=== PATIENT | male | born 1955 | race Caucasian/White ===

== ENCOUNTER 2017-07-10 15:08 | Emergency (ER) | payer MEDICARE, MEDICAID ==
[~2017-07-10] VITALS: Ht 175.3 cm; Wt 76.0 kg
[~2017-07-10 15:08] MED LIST: HYDR30CR79 TP; METH-360 PO
[2017-07-10 15:18] VITALS: BP 136/82
== END 2017-07-10 15:41 | disposition left against medical advice (07) ==
LOC: ER 15:09
DX: J02.9 Acute pharyngitis, unspecified (principal); Z53.21 Procedure and treatment not carried out due to patient leaving prior to being seen by health care provider

== ENCOUNTER 2018-07-31 13:20 | Emergency (ER) | payer MEDICARE, MEDICAID ==
[~2018-07-31] VITALS: Ht 175.3 cm; Wt 72.7 kg
[2018-07-31] MEDS ORDERED: DOXY100T2 PO (14:48)
[2018-07-31 15:14] VITALS: BP 137/88
== END 2018-07-31 15:32 | disposition home or self-care (01) ==
LOC: ER 13:21
DX: H04.301 Unspecified dacryocystitis of right lacrimal passage (principal); G89.29 Other chronic pain; M54.9 Dorsalgia, unspecified; Z90.49 Acquired absence of other specified parts of digestive tract; Z98.890 Other specified postprocedural states; Z88.0 Allergy status to penicillin; Z88.5 Allergy status to narcotic agent
CPT/HCPCS: 99283

== ENCOUNTER 2018-08-05 12:25 | Emergency (ER) | payer MEDICARE, MEDICAID ==
[~2018-08-05] VITALS: Ht 175.3 cm; Wt 67.3 kg
[~2018-08-05 12:25] MED LIST changes: +DOXY100T2 PO
[2018-08-05 13:22] VITALS: BP 113/72
--- NOTE | 2018-08-05 13:25 | NUR ---
PT WAS LEAVING TRIAGE HE STATED HE WAS GOING TO GO OUTSIDE. INFORMED PT IF HE WAS NOT IN LOBBY WHEN WE CALLED HIM WE WILL MOVE ON TO THE NEXT PT
[2018-08-05] MEDS ORDERED: SULF1TAB49 PO (15:07)
[2018-08-05] MEDS ORDERED: CLIN150C2 PO (15:09)
== END 2018-08-05 15:29 | disposition home or self-care (01) ==
LOC: ER 12:26
DX: L03.211 Cellulitis of face (principal); J32.9 Chronic sinusitis, unspecified; G89.29 Other chronic pain; Z90.49 Acquired absence of other specified parts of digestive tract; Z98.890 Other specified postprocedural states; Z88.0 Allergy status to penicillin; Z88.5 Allergy status to narcotic agent; Z79.2 Long term (current) use of antibiotics; Z79.899 Other long term (current) drug therapy
CPT/HCPCS: 99283

== ENCOUNTER 2018-08-18 07:47 | Emergency (ER) | payer MEDICARE, MEDICAID ==
[~2018-08-18] VITALS: Ht 175.3 cm; Wt 77.5 kg
[~2018-08-18 07:47] MED LIST changes: +CLIN150C2 PO
[2018-08-18 07:54] VITALS: BP 127/71
== END 2018-08-18 08:28 | disposition left against medical advice (07) ==
LOC: ER 07:48
DX: J34.89 Other specified disorders of nose and nasal sinuses (principal); G89.29 Other chronic pain; Z90.49 Acquired absence of other specified parts of digestive tract; Z98.890 Other specified postprocedural states; Z88.0 Allergy status to penicillin; Z88.5 Allergy status to narcotic agent; Z79.2 Long term (current) use of antibiotics; Z79.899 Other long term (current) drug therapy
CPT/HCPCS: 99281

== ENCOUNTER 2019-11-06 12:30 | Emergency (ER) | payer MEDICAID, MEDICARE ==
[~2019-11-06 12:30] MED LIST changes: -CLIN150C2 PO
--- NOTE | 2019-11-06 12:34 | NUR ---
Pt up for triage but states to triage nurse he does not want to wait and walked out the [facility] door.
== END 2019-11-06 12:36 | disposition left against medical advice (07) ==
LOC: ER 12:30
DX: S61.219A Laceration without foreign body of unspecified finger without damage to nail, initial encounter (principal); Z53.21 Procedure and treatment not carried out due to patient leaving prior to being seen by health care provider; X58.XXXA Exposure to other specified factors, initial encounter; Y93.89 Activity, other specified; Y92.89 Other specified places as the place of occurrence of the external cause; Y99.8 Other external cause status